=== PATIENT | female | born 1975 | race Caucasian/White ===

== ENCOUNTER 2025-07-17 13:19 | Outpatient (OUT) | payer OTHER, SELFPAY ==
--- OUTSIDE RECORDS SUMMARY | 2025-07-04 16:30 | XMS_ITS | Encounter Summary ---
Author Organization [facility] Address [address] [place] [address] Care Team Providers Care Pile Driving Setter Name Role Phone Unavailable Primary Care Provider Unavailabl e Reason for Visit * ReasonCommentsGynecologic Exam Encounter Details DateTypeDepartmentCare Team (Latest Contact Info)Kvsxgsxnkhl52/16/2025 4:30 PM EDTOffice Visit [facility] [address] [place] [address] Sara Jesus, SUZI [address] [place], [place] [id number] Normal gynecologic examination; Screening for cervical cancer; DUB (dysfunctional uterine bleeding); Endometrial thickening on ultrasound Social History Tobacco UseTypesPacks/DayYears UsedDateSmoking Tobacco: NeverSmokeless Tobacco: NeverAlcohol UseStandard Drinks/WeekCommentsNever0 (1 standard drink = 0.6 oz pure alcohol)Caffeine: noneCommentsNoSex and Gender InformationValueDate RecordedSex Assigned at SgtkhMsfauc30/18/2024 5:20 PM EDTLegal SexFemale 12/01/2022 7:24 PM EDTGender TmpsybmlKcpoem71/18/2024 5:20 PM EDTSexual OrientationNot on filedocumented as of this encounter Last Filed Vital Signs Vital SignReadingTime TakenCommentsBlood Kogmprnt349/9007/04/2025 4:35 PM EDT Pulse--Temperature--Respiratory Rate--Oxygen Saturation--Inhaled Oxygen Concentration--Jnmtfp349 kg (306 lb)07/04/2025 4:35 PM EDTHeight--Body Mass Index41.508/11/2022 9:41 AM EDTdocumented in this encounter Progress Notes * Sara Rochelle Jesus CNM - 07/04/2025 4:30 PM EDT YEARLY HPI: This is a established patient. Chief Complaint Patient presents with Gynecologic Exam Here for annual exam. OB History Para Term AB Living 4 1 4 SAB IAB Ectopic Multiple Live Births 1 # Outcome Date GA Lbr Luke/2nd Weight Sex Type Anes PTL Lv 4 7 lb 14 oz Vag-Spont 3 CS-LTranv Comments: baby girl A: 7lbs 12oz and baby B 7lbs 8oz 2 SAB 1 MANAGER CUSTOM complaints: dub Changes in healthsince last visit: no Surgeries or hospitalizations since last visit: no control method: none Menses: irregular Last pap: 2021 Other: History: Medical History[1] Surgical History[2] Family History[3] Allergies: Allergies[4] Medications: Medications Ordered Prior to Encounter[5] ROS: Review of Systems All other systems reviewed and are negative. Vitals: 07/04/25 1635 BP: 140/90 Physical exam: Physical Exam Vitals reviewed. Constitutional: Appearance: Normal appearance. HENT: Head: Normocephalic. Right Ear: Tympanic membrane normal. Left Ear: Tympanic membrane normal. Mouth/Throat: Mouth: Mucous membranes are moist. Eyes: Pupils: Pupils are equal, round, and reactive to light. Cardiovascular: Rate and Rhythm: Normal rate and regular rhythm. Pulses: Normal pulses. Heart sounds: Normal heart sounds. Pulmonary: Effort: Pulmonary effort is normal. Breath sounds: Normal breath sounds. Chest: Breasts: Right: Normal. Left: Normal. Abdominal: General: Abdomen is flat. Bowel sounds are normal. Palpations: Abdomen is soft. Tenderness: There is no abdominal tenderness. Genitourinary: General: Normal vulva. Exam position: Lithotomy position. Vagina: Normal. No tenderness. Cervix: Normal. No cervical motion tenderness. Uterus: Normal. Adnexa: Right adnexa normal and left adnexa normal. Musculoskeletal: General: Normal range of motion. Cervical back: Normal range of motion and neck supple. Skin: General: Skin is warm and dry. Neurological: General: No focal deficit present. Mental Status: She is alert and oriented to person, place, and time. Psychiatric: Mood and Affect: Mood normal. Assessment and Plan: 1. Annual exam 2. SBE discussed: Yes 3. Diet and exercise discussed: No 4. Wt control discussed: No 5. Safe sex discussed: No Asmita was seen today for gynecologic exam. Diagnoses and all orders for this visit: Normal gynecologic examination Screening for cervical cancer - THINPREP IMAGING PAP AND HPV DNA REFLEX HPV 16,18; Future - THINPREP IMAGING PAP AND HPV DNA REFLEX HPV 16,18 DUB (dysfunctional uterine bleeding) - Cancel: US Pelvis w/ TV; Future Endometrial thickening on ultrasound - US pelvis transvaginal; Future Patient states the irregular heavy bleeding stopped when she took the Megace. She had another period this month and states it wasn't as bad as the previous month but she wanted to keep this appt so she did take the magace.. I did go over the US results with her and educated her that she does need to have it repeated due to the endometrial stripe. It could be a proliferative stage of the cycle and we have to make sure and rule out any pathology. Patient states her maternal grandmother had ovarian cancer. She will get her repeat US done tomorrow since she recently stopped bleeding. No follow-ups on file. There are no Patient Instructions on file for this visit. Dior Dias MA, 07/04/2025 4:54 PM [1] No past medical history on file. [2] Past Surgical History: Procedure Laterality Date SECTION, LOW TRANSVERSE 2007 MAMMOGRAPHY 02/[address] Sethi [3] No family history on file. [4] Allergies Allergen Reactions Ibuprofen Rash [5] Current Outpatient Medications on File Prior to Visit Medication Sig Dispense Refill megestrol (Megace) 20 MG tablet Take 1 tablet BID x3 days and then daily while bleeding 30 tablet 1 No current facility-administered medications on file prior to visit. documented in this encounter Plan of Treatment Not on file documented as of this encounter Procedures Procedure NamePriorityDate/TimeAssociated DiagnosisCommentsTHINPREP IMAGING PAP AND HPV DNA REFLEX HPV 16,51Wxtdwmg79/17/2025 8:47 AM EDT Screening for cervical cancer documented in this encounter Results * US pelvis transvaginal (2025 1:57 PM EDT)Anatomical RegionLaterality ModalityPelvisUltrasoundSpecimen (Source)Anatomical Location / Laterality Collection Method / VolumeCollection TimeReceived Time07/08/2025 1:34 PM EDT Impressions 07/08/2025 2:15 PM EDT Persistent, abnormal endometrial thickening TRANSCRIBED BY: ? ELECTRONICALLY SIGNED BY: David Aranda MD Narrative 07/08/2025 2:15 PM EDT FINDINGS: Comparison prior exam June 03, 2025. Uterus ? 10.3 x 5.9 x 6.0 cm Endometrium ?See below (32 mm increased from 20) Right ovary ?Not seen Left ovary ?Not seen Normal uterine orientation with no focal intramural mass. Increased endometrial thickness, no cystic changes, 3 cm diameter, epicenter within the fundal region. No pelvic fluid. No adnexal mass. Procedure Note David Aranda MD - 07/08/2025 FINDINGS: Comparison prior exam June 03, 2025. Uterus 10.3 x 5.9 x 6.0 cm Endometrium See below (32 mm increased from 20) Right ovary Not seen Left ovary Not seen Normal uterine orientation with no focal intramural mass. Increased endometrial thickness, no cystic changes, 3 cm diameter,epicenter within the fundal region. No pelvic fluid. No adnexal mass. IMPRESSION: Persistent, abnormal endometrial thickening TRANSCRIBED BY: ELECTRONICALLY SIGNED BY: David Aranda MD Authorizing ProviderResult TypeResult StatusValeshivam Jesus [facility] US PROCEDURES Final Result * THINPREP IMAGING PAP AND HPV DNA REFLEX HPV 16,18 (2025 8:47 AM EDT) ComponentValueRef RangeTest MethodAnalysis TimePerformed AtPathologist SignatureCLINICAL INFORMATIONQUESTComment:None givenLMPQUESTComment:NONE GIVEN PREV. PAPQUESTComment:NONE GIVENPREV. BXQUESTComment:NONE GIVENSOURCEQUEST Comment:None givenSTATEMENT OF ADEQUACYQUESTComment: Satisfactory for evaluation. Endocervical/transformation zone component present. INTERPRETATION/RESULTQUESTComment: Cytology Results: Negative for intraepithelial lesion or malignancy. COMMENTQUESTComment: This Pap test has been evaluated with the ThinPrep(R) Imaging System. CYTOTECHNOLOGISTQUESTComment: DMK, CT(ASCP) CT screening location: [facility] [place] [address]. CLIA: [id number] REVIEW CYTOTECHNOLOGISTQUESTComment: JEZuleyma, CT(ASCP) CT Screening Location: [facility] [place] [address]. ??CLIA: [id number] (ALWAYS MESSAGE)QUESTComment: EXPLANATORY NOTE: The Pap is a screening test for cervical cancer. It is not a diagnostic test and is subject to false negative and false positive results. It is most reliable when a satisfactory sample, regularly obtained, is submitted with relevant clinical findings and history, and when the Pap result is evaluated along with historic and current clinical information. HPV DNA, HIGH RISK, CERVICALNot DetectedNOT DETECTEDQUESTComment: Not Detected High Risk HPV types (16,18,31,33,35,39,45,51,52, 56,58,59,66,68) were not detected. Other HPV types which cause anogenital lesions may be present. The significance of the other types of HPV in malignant processes has not been established. Methodology: Real Time PCR Specimen (Source)Anatomical Location / LateralityCollection Method / Volume Collection TimeReceived TimeSwabCervical swab / Gyxzpge6107/05/2025 8:47 AM EDT 07/06/2025 2:50 AM EDT Narrative Resulting Agency Comment Performing Organization Information ?Site ID: [facility] ?Name: [facility] ?Address: [address] [place] [address] [place], [place] ?Director: Angel Villegas M.D.,PhD ?Site ID: [id number] ?Name: [facility] ?Address: [address] [place] [address], [address] [place] [address] ?Director: Arcenio Nova MD Authorizing ProviderResult TypeResult StatusValeshivam Jesus CNMLAB CYTOLOGY ORDERABLESFinal ResultPerforming OrganizationAddressCity/State/ZIP CodePhone Number QUEST documented in this encounter Visit Diagnoses Diagnosis Normal gynecologic examination Screening for cervical cancer Screening for malignant neoplasm of the cervix DUB (dysfunctional uterine bleeding) Other disorder of menstruation and other abnormal bleeding from female genital tract Endometrial thickening on ultrasound Endometrial thickening on ultrasound documented in this encounter
--- OUTSIDE RECORDS SUMMARY | 2025-07-05 13:30 | XMS_ITS | Encounter Summary ---
Author Organization [facility] Address [address] [place] [address] Care Team Providers Care Culinary Internship Name Role Phone Unavailable Primary Care Provider Unavailabl e Encounter Details DateTypeDepartmentCare Team (Latest Contact Info)Zagmdblneim69/17/2025 1:30 PM EDTAncillary Procedure [facility] [address] [place] [address] Endometrial thickening on ultrasound Social History Tobacco UseTypesPacks/DayYears UsedDateSmoking Tobacco: NeverSmokeless Tobacco: NeverAlcohol UseStandard Drinks/WeekCommentsNever0 (1 standard drink = 0.6 oz pure alcohol)Caffeine: noneCommentsNoSex and Gender InformationValueDate RecordedSex Assigned at EurjeQzoaex74/18/2024 5:20 PM EDTLegal SexFemale 12/01/2022 7:24 PM EDTGender TimzmsrgAxnvto73/18/2024 5:20 PM EDTSexual OrientationNot on filedocumented as of this encounter Plan of Treatment Not on file documented as of this encounter Procedures Procedure NamePriorityDate/TimeAssociated DiagnosisCommentsUS PELVIS SIJRDJCNXKNMOkzplsm37/17/2025 1:57 PM EDT Endometrial thickening on ultrasound documented in this encounter Results * US [...] Aranda MD Authorizing ProviderResult TypeResult StatusValeshivam Jesus [facility] US PROCEDURES Final Result documented in this encounter Visit Diagnoses Diagnosis Endometrial thickening on ultrasound documented in this encounter
--- OUTSIDE RECORDS SUMMARY | 2025-07-15 15:00 | XMS_ITS | Encounter Summary ---
Author Organization [facility] Address [address] [place] [address] Care Team Providers Care Spring Repairer Helper Hand Name Role Phone Unavailable Primary Care Provider Unavailabl e Reason for Visit * ReasonCommentsConsult * OBGYN (Routine) - ClosedSpecialtyDiagnoses / ProceduresReferred By Contact Referred To ContactObstetrics and Gynecology Diagnoses DUB (dysfunctional uterine bleeding) Procedures HI OFFICE/OUTPATIENT [facility] 60 MINUTES Sara Jesus, CNJacki [address] [place] [address] Phone: tel: fax: Rivera Baker DO [address] [place] [address] Phone: tel: fax: Referral IDStatusReasonStart DateExpiration DateVisits RequestedVisits [id number] Specialty Services Required / Encounter Details DateTypeDepartmentCare Team (Latest Contact Info)Anrtzwnqfms67/27/2025 3:00 PM EDTConsult [facility] [address] [place] [address] Rivera Baker DO [address] [place] [address] Pre-op examination; DUB (dysfunctional uterine bleeding); Thickened endometrium Social History Tobacco UseTypesPacks/DayYears UsedDateSmoking Tobacco: NeverSmokeless Tobacco: Never Tobacco Cessation:Counseling Given: Not Answered Alcohol UseStandard Drinks/WeekCommentsNever0 (1 standard drink = 0.6 oz pure alcohol)Caffeine: noneCommentsNoSex and Gender InformationValueDate RecordedSex Assigned at FtjbrRsmooo65/18/2024 5:20 PM EDTLegal SexFemale 12/01/2022 7:24 PM EDTGender MpohjtbaDevcjc42/18/2024 5:20 PM EDTSexual OrientationNot on filedocumented as of this encounter Last Filed Vital Signs Vital SignReadingTime TakenCommentsBlood Wzkhfddb869/8210 3:08 PM EDT Pulse--Temperature--Respiratory Rate--Oxygen Saturation--Inhaled Oxygen Concentration--Dnkwuv958 kg (301 lb 12.8 oz)07/15/2025 3:08 PM TAZGbrzpu732.9 cm (6')07/15/2025 3:08 PM EDTBody Mass Index40.9307/15/2025 3:08 PM EDTdocumented in this encounter Progress Notes * Kat Alonso - 07/15/2025 3:00 PM EDT Reason for Appointment: Patient ID: Asmita Trotter is a 50 y.o. female who presents for Consult Patient presents today for Pre Op/Referral from [facility] appointment. Patient is scheduled to undergo D&C Hysteroscopy, possible Myosure on 07/22/[address] Baker at [facility]. MEDICATIONS Current Outpatient Medications Medication Instructions megestrol [...] nursing note reviewed. Exam conducted with a application assistant present. Vitals: Estimated body mass index is 40.93 kg/m?? as calculated from the following: Height as of this encounter: 6'. Weight as of this encounter: 301 lb 12.8 oz. BP: 142/82 Patient's last menstrual period was 07/01/2025 (approximate). ASSESSMENT & PLAN ICD-10-CM 1. Pre-op examination Z01.818 2. DUB (dysfunctional uterine bleeding) N93.8 3. Thickened endometrium R93.89 Patient presents today as a referral from [facility] to assess dysfunctional uterine bleeding. Patient has [...] reviewed, and patient is to proceed to [facility] OR. Follow Up: Patient is to follow [...]
--- OUTSIDE RECORDS SUMMARY | 2025-07-17 13:25 | XMS_ITS | Encounter Summary ---
Author Organization [facility] Address [address] [place] [address] [place] [address] Care Team Providers Care Highway Truck Driver Name Role Phone Unavailable Primary Care Provider Unavailabl e Encounter Details DateTypeDepartmentCare Team (Latest Contact Info)Mnasuakkbpv87/16/2025Bamboo flowsheet [facility] [address] [place] [address] Sara Jesus, SUZIM [address] [place], [place] [address] Social History Tobacco UseTypesPacks/DayYears UsedDateSmoking Tobacco: NeverSmokeless Tobacco: NeverAlcohol UseStandard Drinks/WeekCommentsNever0 (1 standard drink = 0.6 oz pure alcohol)Caffeine: noneCommentsNoSex and Gender InformationValueDate RecordedSex Assigned at BtsngAbiwuu10/18/2024 5:20 PM EDTLegal SexFemale 12/01/2022 7:24 PM EDTGender VtkngfvoDvbhlg28/18/2024 5:20 PM EDTSexual OrientationNot on filedocumented as of this encounter Plan of Treatment Not on file documented as of this encounter Visit Diagnoses Not on filedocumented in this encounter
--- OUTSIDE RECORDS SUMMARY | 2025-07-17 13:25 | XMS_ITS | Clinical Summary ---
Author Organization [facility] tem Address [id number] [address] [place] [address] Care Team Providers Care Shank Turner Name Role Phone Bruna Ashton MD Primary Care Provider + Family History Medical HistoryRelationNameCommentsBreast cancerMaternal AuntRelationNameStatus CommentsMaternal Aunt Social History Tobacco UseTypesPacks/DayYears UsedDateSmoking Tobacco: Never AssessedChildcare AnswerDate WvdyrtdnIoyzzxtkkYmpznze69/12/2019EmploymentAnswerDate Recorded HxzarywtgoNfpgthj72/12/2019Purpose - LifeAnswerDate RecordedPurpose and direction in gcpcJhotxqb75/11/2021CommentsUnknownSex and Gender InformationValueDate RecordedSex Assigned at BirthNot on fileLegal SexFemale 04/24/2015 11:58 AM EDTGender IdentityNot on fileSexual OrientationNot on file Plan of Treatment Not on file Medical Devices Not on file Insurance * Guarantor: EVELIN MONTENEGRO EAccount TypeRelation to PatientDate of BirthPhone Billing AddressPersonal/Kkuovl22 [address] [place] [id number] Care Teams Team MemberRelationshipSpecialtyStart DateEnd Date Bruna Ashton MD PCP - GeneralPediatrics3
--- OUTSIDE RECORDS SUMMARY | 2025-07-17 13:25 | XMS_ITS | Encounter Summary ---
Author Organization [facility] Address [address] [place] [address] Care Team Providers Care Dulite Machine Bluer Name Role Phone Unavailable Primary Care Provider Unavailabl e Reason for Referral * OBGYN (Routine) - ClosedSpecialtyDiagnoses / ProceduresReferred By Contact Referred To ContactObstetrics and Gynecology Diagnoses DUB (dysfunctional uterine bleeding) Procedures [place] OFFICE/OUTPATIENT [facility] 60 MINUTES Sara Jesus CNM [address] [place] [address] Phone: tel: fax: Rivera Baker [address] [place] [address] Phone: tel: fax: Referral IDStatusReasonStart DateExpiration DateVisits RequestedVisits [id number] Specialty Services Required / Encounter Details DateTypeDepartmentCare Team (Latest Contact Info)Nmkmfimyygs30/20/2025Orders Only [facility] [address] [place] [address] Sara Jesus CNM [address] [place], [place] [id number] DUB (dysfunctional uterine bleeding) (Primary Dx) Social History Tobacco UseTypesPacks/DayYears UsedDateSmoking Tobacco: NeverSmokeless Tobacco: NeverAlcohol UseStandard Drinks/WeekCommentsNever0 (1 standard drink = 0.6 oz pure alcohol)Caffeine: noneCommentsNoSex and Gender InformationValueDate RecordedSex Assigned at DphapJwxfjy95/18/2024 5:20 PM EDTLegal SexFemale 12/01/2022 7:24 PM EDTGender IbudogqhLnnzwk02/18/2024 5:20 PM EDTSexual OrientationNot on filedocumented as of this encounter Plan of Treatment NameTypePriorityAssociated DiagnosesOrder ScheduleAmbulatory referral to Obstetrics / GynecologyOutpatient ReferralRoutine DUB (dysfunctional uterine bleeding) Expected: 07/08/2025 (Approximate), Expires: 01/06/2026documented as of this encounter Visit Diagnoses Diagnosis DUB (dysfunctional uterine bleeding)- Primary Other disorder of menstruation and other abnormal bleeding from female genital tract documented in this encounter
--- OUTSIDE RECORDS SUMMARY | 2025-07-17 13:25 | XMS_ITS | Encounter Summary ---
Author Organization [facility] Address [address] [place] [address] Care Team Providers Care Sas Analyst Name Role Phone Unavailable Primary Care Provider Unavailabl e Encounter Details DateTypeDepartmentCare Team (Latest Contact Info)Pzqwszjsmug56/15/2025Travel Social History Tobacco UseTypesPacks/DayYears UsedDateSmoking Tobacco: NeverSmokeless Tobacco: NeverAlcohol UseStandard Drinks/WeekCommentsNever0 (1 standard drink = 0.6 oz pure alcohol)Caffeine: noneCommentsNoSex and Gender InformationValueDate RecordedSex Assigned at ByhkyNdisaj31/18/2024 5:20 PM EDTLegal SexFemale 12/01/2022 7:24 PM EDTGender VwtyayisWlatki43/18/2024 5:20 PM EDTSexual OrientationNot on filedocumented as of this encounter Plan of Treatment Not on file documented as of this encounter Visit Diagnoses Not on filedocumented in this encounter
--- OUTSIDE RECORDS SUMMARY | 2025-07-17 13:25 | XMS_ITS | Encounter Summary ---
Author Organization [facility] Address [address] [place] [address] Care Team Providers Care Starcher And Tenter Range Feeder Name Role Phone Unavailable Primary Care Provider Unavailabl e Encounter Details DateTypeDepartmentCare Team (Latest Contact Info)Ysyffzztnig62/17/2025Travel Social History Tobacco UseTypesPacks/DayYears UsedDateSmoking Tobacco: NeverSmokeless Tobacco: NeverAlcohol UseStandard Drinks/WeekCommentsNever0 (1 standard drink = 0.6 oz pure alcohol)Caffeine: noneCommentsNoSex and Gender InformationValueDate RecordedSex Assigned at XkjjlOklvwj50/18/2024 5:20 PM EDTLegal SexFemale 12/01/2022 7:24 PM EDTGender VtqpjbbcVzgepl06/18/2024 5:20 PM EDTSexual OrientationNot on filedocumented as of this encounter Plan of Treatment Not on file documented as of this encounter Visit Diagnoses Not on filedocumented in this encounter
--- OUTSIDE RECORDS SUMMARY | 2025-07-17 13:26 | XMS_ITS | Encounter Summary ---
Author Organization [facility] Address [address] [place] [address] Care Team Providers Care Seat Nailer Name Role Phone Unavailable Primary Care Provider Unavailabl e Encounter Details DateTypeDepartmentCare Team (Latest Contact Info)Bzrwooziecq66/27/2025amboo flowsheet [facility] [address] [place] [address] Rivera Baker DO [address] [place] [address] Social History Tobacco UseTypesPacks/DayYears UsedDateSmoking Tobacco: NeverSmokeless Tobacco: NeverAlcohol UseStandard Drinks/WeekCommentsNever0 (1 standard drink = 0.6 oz pure alcohol)Caffeine: noneCommentsNoSex and Gender InformationValueDate RecordedSex Assigned at CnkbsEzzvvu81/18/2024 5:20 PM EDTLegal SexFemale 12/01/2022 7:24 PM EDTGender LipzxcmkEjluyd40/18/2024 5:20 PM EDTSexual OrientationNot on filedocumented as of this encounter Plan of Treatment Not on file documented as of this encounter Visit Diagnoses Not on filedocumented in this encounter
--- OUTSIDE RECORDS SUMMARY | 2025-07-17 13:26 | XMS_ITS | Encounter Summary ---
Author Organization [facility] Address [address] [place] [address] Care Team Providers Care Women Nurse Name Role Phone Unavailable Primary Care Provider Unavailabl e Encounter Details DateTypeDepartmentCare Team (Latest Contact Info)Oaavdrcjlls63/25/2025Travel Social History Tobacco UseTypesPacks/DayYears UsedDateSmoking Tobacco: NeverSmokeless Tobacco: NeverAlcohol UseStandard Drinks/WeekCommentsNever0 (1 standard drink = 0.6 oz pure alcohol)Caffeine: noneCommentsNoSex and Gender InformationValueDate RecordedSex Assigned at JngdeZcodqc14/18/2024 5:20 PM EDTLegal SexFemale 12/01/2022 7:24 PM EDTGender LhwndqfoFhwysd03/18/2024 5:20 PM EDTSexual OrientationNot on filedocumented as of this encounter Plan of Treatment Not on file documented as of this encounter Visit Diagnoses Not on filedocumented in this encounter
--- OUTSIDE RECORDS SUMMARY | 2025-07-17 13:26 | XMS_ITS | Encounter Summary ---
Author Organization [facility] Address [address] [place] [address] Care Team Providers Care Exhibition Carver Name Role Phone Unavailable Primary Care Provider Unavailabl e Encounter Details DateTypeDepartmentCare Team (Latest Contact Info)Kipagcxjhil06/20/2025Results Follow-Up [facility] [address] [place] [address] Dior Hightower MA pelvis transvaginal, THINPREP IMAGING PAP AND HPV DNA REFLEX HPV 16,18 Social History Tobacco UseTypesPacks/DayYears UsedDateSmoking Tobacco: NeverSmokeless Tobacco: NeverAlcohol UseStandard Drinks/WeekCommentsNever0 (1 standard drink = 0.6 oz pure alcohol)Caffeine: noneCommentsNoSex and Gender InformationValueDate RecordedSex Assigned at HutseEvggkl48/18/2024 5:20 PM EDTLegal SexFemale 12/01/2022 7:24 PM EDTGender WaynugynTuxmuc92/18/2024 5:20 PM EDTSexual OrientationNot on filedocumented as of this encounter Plan of Treatment Not on file documented as of this encounter Visit Diagnoses Not on filedocumented in this encounter
--- OUTSIDE RECORDS SUMMARY | 2025-07-17 13:26 | XMS_ITS | Clinical Summary ---
Author Organization [facility] Address [address] [place] [address] Care Team Providers Care Bread Packer Name Role Phone Unavailable Primary Care Provider Unavailabl e Allergies Active AllergyReactionsCriticalityNoted XmlfJyzselnbRhznezjeyLimvNiw64/03/2023 Medications MedicationSigDispense QuantityRefillsLast FilledStart DateEnd DateStatus megestrol (Megace) 20 MG tablet Indications:DUB (dysfunctional uterine bleeding)Take 1 tablet BID x3 days and then daily while bleeding 30 tablet 5Active Encounters DateTypeDepartmentCare ZyhzWmfwsyneaid08/27/2025 3:00 PM EDTConsult [facility] [address] [place] [address] [place] [address] Rivera Baker DO Pre-op examination; DUB (dysfunctional uterine bleeding); Thickened dfkkwfexdet61/27/2025amboo flowsheet [facility] [address] [place] [address] [place] [address] Rivera Baker DO 07/13/20257351Gcibdp66/20/2025Results Follow-Up [facility] [address] [place] [address] Dior Hightower MA US pelvis transvaginal, THINPREP IMAGING PAP AND HPV DNA REFLEX HPV 16,18 07/08/2025Orders Only [facility] [address] [place] [address] Saar Jesus CNM DUB (dysfunctional uterine bleeding) (Primary Dx)2025 1:30 PM EDTAncillary Procedure [facility] [address] [address] Endometrial thickening on /17/3389Jzglfd52/16/2025 4:30 PM EDTOffice Visit [facility] [address] [place] [address] Sara Jesus CNM Normal gynecologic examination; Screening for cervical cancer; DUB (dysfunctional uterine bleeding); Endometrial thickening on dyaciittvn65/16/2025amboo flowsheet [facility] [address] [facility] [place] [address] Sara Jesus CNM 07/03/20253848Unkinm10/26/2025Results Follow-Up [facility] [address] [place] [phone] Dior Hightower MA CBC, TSH, Comprehensive metabolic panel, Additional followed-up results: 2 06/03/2025 5:00 PM EDTAncillary Procedure [facility] [address] [address] DUB (dysfunctional uterine bleeding)06/03/20259128Xkkmag84/12/2074Ugbjzq36/11/2025 1:30 PM EDTOffice Visit [facility] [address] [place] [address] Sara Jesus CNM DUB (dysfunctional uterine bleeding) (Primary Dx)05/30/2025amboo flowsheet [facility] [address] [place] [address] Sara Jesus CNM 05/30/20259887Unwwsp01/12/2025Results Follow-Up [facility] [address] [place] [phone] Sara Jesus CNM Bilateral screening mammogram with npyxupuusvjrt57/08/2025 1:00 PM EDTAncillary Procedure [facility] [address] [place] [address] Breast cancer screening by xmglqnkix17/08/2025Travelfrom Last 3 Months Family History RelationNameStatusCommentsDaughter 1AliveDaughter 2Alive Social History Tobacco UseTypesPacks/DayYears UsedDateSmoking Tobacco: NeverSmokeless Tobacco: Never Tobacco Cessation:Counseling Given: Not Answered Alcohol UseStandard Drinks/WeekCommentsNever0 (1 standard drink = 0.6 oz pure alcohol)Caffeine: noneCommentsNoSex and Gender InformationValueDate RecordedSex Assigned at OahrnCvtzuo53/18/2024 5:20 PM EDTLegal SexFemale 12/01/2022 7:24 PM EDTGender TbvbvpcdFypekb95/18/2024 5:20 PM EDTSexual OrientationNot on file Last Filed Vital Signs Vital SignReadingTime TakenCommentsBlood Pywjmvcj384/8207/15/2025 3:08 PM EDT Pulse--Temperature--Respiratory Rate--Oxygen Saturation--Inhaled Oxygen Concentration--Xzybdo267 kg (301 lb 12.8 oz)07/15/2025 3:08 PM XRKUsmzyz117.9 cm (6')07/15/2025 3:08 PM EDTBody Mass Index40.9307/15/2025 3:08 PM EDT Plan of Treatment Not on file Procedures Procedure NamePriorityDate/TimeAssociated DiagnosisCommentsUS PELVIS WYQWOKVRAUJVVqutoqc01/17/2025 1:57 PM EDT Endometrial thickening on ultrasound THINPREP IMAGING PAP AND HPV DNA REFLEX HPV 16,16Wknppix76/17/2025 8:47 AM EDT Screening for cervical cancer US PELVIC COMPLETE W/ JTBkhvwgx06/15/2025 5:42 PM EDT DUB (dysfunctional uterine bleeding) LIPID GQDGANlneejb35/11/2025 2:08 PM EDT DUB (dysfunctional uterine bleeding) COMPREHENSIVE METABOLIC PPAEULyepeyk97/11/2025 2:08 PM EDT DUB (dysfunctional uterine bleeding) DXEPwosthj08/11/2025 2:08 PM EDT DUB (dysfunctional uterine bleeding) ZJKSphmegu16/11/2025 2:08 PM EDT DUB (dysfunctional uterine bleeding) BI MAMMOGRAM SCREENING TOMOSYNTHESIS HXNAKQIOZKgukkhy27/08/2025 1:11 PM EDT Breast cancer screening by mammogram from Last 3 Months Results * US pelvis transvaginal (2025 1:57 [...] Aranda MD Authorizing ProviderResult TypeResult StatusValeshivam Jesus [facility] US PROCEDURES Final Result * THINPREP [...] evaluated with the ThinPrep(R) Imaging System. CYTOTECHNOLOGISTQUESTComment: ELYSE CT(ASCP) CT screening location: [facility] [place] [address]. CLIA: [id number] REVIEW CYTOTECHNOLOGISTQUESTComment: TEODORA CT(ASCP) CT Screening Location: [facility] [place] [address]. ??CLIA: [id number] (ALWAYS MESSAGE)QUESTComment: EXPLANATORY NOTE: The Pap is [...] / Volume Collection TimeReceived TimeSwabCervical swab / Hfqyksh5207/05/2025 8:47 AM EDT 07/06/2025 2:50 AM EDT Narrative Resulting Agency Comment Performing Organization Information ?Site ID: AMD ?Name: [facility] ?Address: [address] [place] [address] [address] [place], [place] ?Director: Angel Villegas M.D.,PhD ?Site ID: [id number] ?Name: [facility] [employer] [facility] [facility] ?Address: [address] [place] [address], [address] [place] [phone] ?Director: Arcenio Nova MD Authorizing ProviderResult TypeResult StatusValerijeo Jesus CNMLAB CYTOLOGY ORDERABLESFinal ResultPerforming OrganizationAddressCity/[facility] CodePhone Number [facility]ST * US Pelvis w/ TV (06/03/2025 5:42 PM EDT)Anatomical RegionLateralityModality PelvisUltrasoundSpecimen (Source)Anatomical Location / LateralityCollection Method / VolumeCollection TimeReceived Time06/04/2025 1:21 PM EDT Impressions 06/04/2025 1:31 PM EDT 1. Endometrial thickness, correlate with menstrual cycle history and if tissue sampling is not undertaken, at minimum follow-up examinations 2. Left ovarian benign cyst TRANSCRIBED BY: ? ELECTRONICALLY SIGNED BY: David Aranda MD Narrative 06/04/2025 1:31 PM EDT FINDINGS: Uterus ? 13.5 x 8.1 x 6.0 cm Endometrium ? See below Right ovary ?2.4 x 1.8 x 1.6 cm Left ovary ?4.1 x 4.3 x 4.2 cm (cyst) Normal uterine orientation. No myometrial mass. Endometrial thickening, no focal mass or cystic changes, 20 mm thickness within the fundus. No pelvic fluid. Left ovarian 3 cm benign cyst. Normal right ovary, visualized only on transabdominal images. Procedure Note David Aranda MD - 06/04/2025 FINDINGS: Uterus 13.5 x 8.1 x 6.0 cm Endometrium See below Right ovary 2.4 x 1.8 x 1.6 cm Left ovary 4.1 x 4.3 x 4.2 cm (cyst) Normal uterine orientation. No myometrial mass. Endometrial thickening, no focal mass or cystic changes, 20 mm thicknesswithin the fundus. No pelvic fluid. Left ovarian 3 cm benign cyst. Normal right ovary,visualized only on transabdominal images. IMPRESSION: 1. Endometrial thickness, correlate with menstrual cycle history and iftissue sampling is not undertaken, at minimum follow-up examinations 2. Left ovarian benign cyst TRANSCRIBED BY: ELECTRONICALLY SIGNED BY: David Aranda MD Authorizing ProviderResult TypeResult StatusValerijoe Jesus [facility] US PROCEDURES Final Result * (ABNORMAL) CBC (05/30/2025 2:08 PM EDT)ComponentValueRef RangeTest Method Analysis TimePerformed AtPathologist SignatureWHITE BLOOD CELL COUNT7.03.8 - 10.8 Thousand/uLQUESTRED BLOOD CELL COUNT4.373.80 - 5.10 Million/uLQUEST LZWHJFSRFA07.9(L)11.7 - 15.5 g/mVHLLBFMVUHTVEQTQ77.835.0 - 45.0 %TBORHNOJ83.2 80.0 - 100.0 yZRUHJVSQE45.9(L)27.0 - 33.0 vyAGBMIPKKD95.6(L)32.0 - 36.0 g/dL QUESTComment: For adults, a slight decrease in the calculated MCHC value (in the range of 30 to 32 g/dL) is most likely not clinically significant; however, it should be interpreted with caution in correlation with other red cell parameters and the patient's clinical condition. RDW14.211.0 - 15.0 %QUESTPLATELET TIBMM193(H)140 - 400 Thousand/uRGGYPYXUK20.4 7.5 - 12.5 fLQUESTSpecimen (Source)Anatomical Location / LateralityCollection Method / VolumeCollection TimeReceived TimeBloodVenous blood specimen / Unknown 05/30/2025 2:08 PM EDT05/30/2025 2:09 PM EDT Narrative Resulting Agency Comment Performing Organization Information ?Site ID: [id number] ?Name: [facility] [facility] ?Address: [address] [place] [address] ?Director: Arcenio Nova MD Authorizing ProviderResult TypeResult StatusValerijoe Burroughso CNMLAB BLOOD ORDERABLESFinal ResultPerforming OrganizationAddressty/State/ZIP CodePhone Number [facility]ST * TSH (05/30/2025 2:08 PM EDT)ComponentValueRef RangeTest MethodAnalysis Time Performed AtPathologist SignatureTSH1.36mIU/LQUESTComment: ?Reference Range ? > or = 20 Years 0.40-4.50 ? Ranges ?First trimester ?0.26-2.66 ?Second trimester ?? 0.55-2.73 ?Third trimester ?0.43-2.91 Specimen (Source)Anatomical Location / LateralityCollection Method / Volume Collection TimeReceived TimeBloodVenous blood specimen / Lvmvond7905/30/2025 2:08 PM EDT05/30/2025 2:09 PM EDT Narrative Resulting Agency Comment Performing Organization Information ?Site ID: [id number] ?Name: [facility] [facility] ?Address: [address] [place] [address] ?Director: Arcenio Nova MD Authorizing ProviderResult TypeResult StatusValerijoe Burroughso CNMLAB BLOOD ORDERABLESFinal ResultPerforming OrganizationAddLehigh [facility]/ZIP CodePhone Number QUEST * Lipid panel (05/30/2025 2:08 PM EDT)ComponentValueRef RangeTest MethodAnalysis TimePerformed AtPathologist SignatureCHOLESTEROL, IRIJC725<200 mg/dLQUESTHDL TVQBEUYGJHA98> OR = 50 mg/kLSEYURVBJQWCNFBFWZW10<150 mg/dLQUESTLDL CHOLESTEROL 98mg/dL (calc)QUESTComment: Reference range: <100 Desirable range <100 mg/dL for primary prevention; <70 mg/dL for patients with CHD or diabetic patients with > or = 2 CHD risk factors. LDL-C is now calculated using the Vida calculation, which is a validated novel method providing better accuracy than the Friedewald equation in the estimation of LDL-C. Aaron RODRIGUEZ et al. STACY. 2013;310(19): 7010-9411 (http://education.ReDigi.[employer]/faq/TKX205) CHOL/HDLC RATIO3.1<5.0 (calc)QUESTNON HDL OGCUJUCDEBL047<130 mg/dL (calc)QUEST Comment: For patients with diabetes plus 1 major ASCVD risk factor, treating to a non-HDL-C goal of <100 mg/dL (LDL-C of <70 mg/dL) is considered a therapeutic option. Specimen (Source)Anatomical Location / LateralityCollection Method / Volume Collection TimeReceived TimeBloodVenous blood specimen / Uwxvzpw8605/30/2025 2:08 PM EDT05/30/2025 2:09 PM EDT Narrative Resulting Agency Comment Performing Organization Information ?Site ID: QPT ?Name: [facility] [employer] [facility] [facility] ?Address: [address] [place] [address], [address] [place] [phone] ?Director: Arcenio Nova MD Authorizing ProviderResult TypeResult StatusValerijoe Jesus CNMLAB BLOOD ORDERABLESFinal ResultPerforming OrganizationAddressCity/State/ZIP CodePhone Number [facility]ST * (ABNORMAL) Comprehensive metabolic panel (05/30/2025 2:08 PM EDT)Component ValueRef RangeTest MethodAnalysis TimePerformed AtPathologist SignatureGlucose 125(H)65 - 99 mg/dLQUESTComment: ? Fasting reference interval For someone without known diabetes, a glucose value between 100 and 125 mg/dL is consistent with prediabetes and should be confirmed with a follow-up test. IIF674 - 25 mg/dLQUESTCreatinine0.940.50 - 0.99 mg/gONHKFKMXTG44> OR = 60 mL/min/1.74t4HTRMVHVR/CREATININE RATIOSEE NOTE:6 - 22 (calc)QUESTComment: ?? Not Reported: BUN and Creatinine are within ?? reference range. ? Pfaffq352992 - 146 mmol/LQUESTPotassium, Bld4.13.5 - 5.3 mmol/WVDHZCZbtzmiap532 98 - 110 mmol/LQUESTCarbon Vwqcjdz2999 - 32 mmol/LQUESTCalcium9.08.6 - 10.2 mg/dLQUESTPROTEIN, TOTAL7.36.1 - 8.1 g/dLQUESTALBUMIN4.33.6 - 5.1 g/dLQUEST GLOBULIN3.01.9 - 3.7 g/dL (calc)QUESTALBUMIN/GLOBULIN RATIO1.41.0 - 2.5 (calc) QUESTBILIRUBIN, TOTAL0.40.2 - 1.2 mg/dLQUESTALKALINE BZXKLOXEHXE4899 - 125 U/L VPYVKJWV2130 - 35 U/GDNEMBPHB72 - 29 U/LQUESTSpecimen (Source)Anatomical Location / LateralityCollection Method / VolumeCollection TimeReceived TimeBlood Venous blood specimen / Iwrcxpf8705/30/2025 2:08 PM EDT05/30/2025 2:09 PM EDT Narrative Resulting Agency Comment Performing Organization Information ?Site ID: QPT ?Name: [facility] [facility] ?Address: [address] [place] [phone] ?Director: Arcenio Nova MD Authorizing ProviderResult TypeResult StatusValerijoe Jesus CNMLAB BLOOD ORDERABLESFinal ResultPerforming OrganizationAddressCity/State/ZIP CodePhone Number QUEST * Bilateral screening mammogram with tomosynthesis (04/26/2025 1:11 PM EDT) Anatomical RegionLateralityModalityBreastBilateralMammographySpecimen (Source) Anatomical Location / LateralityCollection Method / VolumeCollection Time Received Time04/28/2025 2:12 PM EDT Impressions 04/28/2025 2:20 PM EDT Impression: No specific evidence of malignancy seen in either breast. BIRADS 2 - Benign Findings DENSITY: The breasts are almost entirely fatty. FOLLOW-UP: Routine Screening Mammogram ELECTRONICALLY SIGNED BY: Salazar Bergman M.D. Narrative 04/28/2025 2:20 PM EDT Examination: BI MAMMOGRAM SCREENING TOMOSYNTHESIS BILATERAL Clinical History: screening Technique: Screening digital mammography study of both breasts was performed with 2-D and 3-D tomosynthesis imaging. Study was compared to the prior exam dated 04/23/2024. Findings: There is no evidence of interval dominant spiculated mass, grouped microcalcifications, or skin thickening which would be suggestive of malignancy. ?? Partially visualized axillary lymph node is noted on the left which appears grossly unremarkable. Procedure Note Salazar Bergman MD - 04/28/2025 Examination: BI MAMMOGRAM SCREENING TOMOSYNTHESIS BILATERAL Clinical History: screening Technique: Screening digital mammography study of both breasts wasperformed with 2-D and 3-D tomosynthesis imaging. Study was compared tothe prior exam dated 04/23/2024. Findings: There is no evidence of interval dominant spiculated mass,grouped microcalcifications, or skin thickening which would be suggestiveof malignancy. Partially visualized axillary lymph node is noted on the left whichappears grossly unremarkable. IMPRESSION: Impression: No specific evidence of malignancy seen in either breast. BIRADS 2 - Benign Findings DENSITY: The breasts are almost entirely fatty. FOLLOW-UP: Routine Screening Mammogram ELECTRONICALLY SIGNED BY: Salazar Bergman M.D. Authorizing ProviderResult TypeResult StatusValerie Rochelle Jesus CNMIMG BI PROCEDURES Final Result from Last 3 Months Insurance
--- NOTE | 2025-07-17 13:30 | ECG_ITS ---
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
== END 2025-07-17 13:20 | disposition home or self-care (01) ==
PROVIDERS: Visit Provider Obstetrics & Gynecology
DX: Z01.810 Encounter for preprocedural cardiovascular examination (principal); N93.8 Other specified abnormal uterine and vaginal bleeding; R93.89 Abnormal findings on diagnostic imaging of other specified body structures
CPT/HCPCS: 93005

== ENCOUNTER 2025-07-22 06:14 | Day surgery (SDC) | payer OTHER, SELFPAY ==
--- OUTSIDE RECORDS SUMMARY | 2025-07-15 14:00 | XMS_ITS | Encounter Summary ---
Author Organization [facility] Address [address] [place] [address] Care Team Providers Care Manager Pool Name Role Phone Unavailable Primary Care Provider Unavailabl e Reason for Visit * ReasonCommentsConsult * OBGYN (Routine) - ClosedSpecialtyDiagnoses / ProceduresReferred By Contact Referred To ContactObstetrics and Gynecology Diagnoses DUB (dysfunctional uterine bleeding) Procedures ID OFFICE/OUTPATIENT [facility] 60 MINUTES Sara Jesus, CNJacki [address] [place] [address] Phone: tel: fax: Rivera Baker DO [address] [place] [address] Phone: tel: fax: Referral IDStatusReasonStart DateExpiration DateVisits RequestedVisits [id number] Specialty Services Required / Encounter Details DateTypeDepartmentCare Team (Latest Contact Info)Xzkvvsbntuu89/27/2025 3:00 PM EDTConsult [facility] [address] [place] [address] Rivera Baker DO [address] [place] [address] Pre-op examination; DUB (dysfunctional uterine bleeding); Thickened endometrium Social History Tobacco UseTypesPacks/DayYears UsedDateSmoking Tobacco: NeverSmokeless Tobacco: Never Tobacco Cessation:Counseling Given: Not Answered Alcohol UseStandard Drinks/WeekCommentsNever0 (1 standard drink = 0.6 oz pure alcohol)Caffeine: noneCommentsNoSex and Gender InformationValueDate RecordedSex Assigned at VvnyjLhnihp14/18/2024 5:20 PM EDTLegal SexFemale 12/01/2022 7:24 PM EDTGender IymoducuBortva69/18/2024 5:20 PM EDTSexual OrientationNot on filedocumented as of this encounter Last Filed Vital Signs Vital SignReadingTime TakenCommentsBlood Bmenvtak904/8210 3:08 PM EDT Pulse--Temperature--Respiratory Rate--Oxygen Saturation--Inhaled Oxygen Concentration--Adwpvm675 kg (301 lb 12.8 oz)07/15/2025 3:08 PM AMSDwhmmc652.9 cm (6')07/15/2025 3:08 PM EDTBody Mass Index40.9307/15/2025 3:08 PM EDTdocumented in this encounter Progress Notes * Kat Alonso - 07/15/2025 3:00 PM EDT Reason for Appointment: Patient ID: Asmita Trotter is a 50 y.o. female who presents for Consult Patient presents today for Pre Op/Referral from [facility] appointment. Patient is scheduled to undergo D&C Hysteroscopy, possible Myosure on 07/22/[address] [facility]. MEDICATIONS Current Outpatient Medications Medication Instructions megestrol (Megace) 20 MG tablet Take 1 tablet BID x3 days and then daily while bleeding ALLERGIES Allergies Allergen Reactions Ibuprofen Rash PROBLEMS Active Ambulatory Problems Diagnosis Date Noted No Active Ambulatory Problems Resolved Ambulatory Problems Diagnosis Date Noted No Resolved Ambulatory Problems No Additional Past Medical History HISTORY PAST MEDICAL HISTORY SOCIAL HISTORY No past medical history on file. Social History Tobacco Use Smoking status: Never Smokeless tobacco: Never Vaping Use Vaping status: Never Used Substance Use Topics Alcohol use: Never Comment: Caffeine: none Drug use: Never FAMILY HISTORY No family history on file. SURGICAL HISTORY Past Surgical History: Procedure Laterality Date SECTION, LOW TRANSVERSE 2007 MAMMOGRAPHY 02/[address] Sethi REVIEW OF SYSTEMS Review of Systems: Review of Systems Constitutional: Negative. HENT: Negative. Eyes: Negative. Respiratory: Negative. Cardiovascular: Negative. Gastrointestinal: Negative. Genitourinary: Positive for vaginal bleeding. Musculoskeletal: Negative. Skin: Negative. Neurological: Negative. All other systems reviewed and are negative. Hematological: Negative. Endocrine: Negative. Allergic/Immunologic: Negative. OBJECTIVE Objective: Physical Exam Constitutional: Appearance: Normal appearance. She is well-developed. Cardiovascular: Rate and Rhythm: Normal rate and regular rhythm. Pulmonary: Effort: Pulmonary effort is normal. Breath sounds: Normal breath sounds. Abdominal: General: Bowel sounds are normal. There is no distension. Palpations: Abdomen is soft. Tenderness: There is no abdominal tenderness. There is no guarding or rebound. Musculoskeletal: General: No swelling. Normal range of motion. Right lower leg: No edema. Left lower leg: No edema. Neurological: Mental Status: She is alert and oriented to person, place, and time. Skin: General: Skin is warm and dry. Psychiatric: Mood and Affect: Mood normal. Behavior: Behavior normal. Vitals and nursing note reviewed. Exam conducted with a operations and maintenance technician present. Vitals: Estimated body mass index is 40.93 kg/m?? as calculated from the following: Height as of this encounter: 6'. Weight as of this encounter: 301 lb 12.8 oz. BP: 142/82 Patient's last menstrual period was 07/01/2025 (approximate). ASSESSMENT & PLAN ICD-10-CM 1. Pre-op examination Z01.818 2. DUB (dysfunctional uterine bleeding) N93.8 3. Thickened endometrium R93.89 Patient presents today as a referral from [facility] to assess dysfunctional uterine bleeding. Patient has had irregular heavy bleeding and and has tried Megace in the past. Due to ultrasound results discovering a thickened endometrium, patient needs to undergo a D&C Hysteroscopy. Pre Op: Patient is doing well but has complaints of DUB and thickened endometrium found on ultrasound. I have discussed conservative management vs. surgical management with the patient in detail and patient desires surgical management at this time. Patient will undergo D&C Hysteroscopy, possible Myosure on 07/22/2025. Surgical consents were signed, mmc was reviewed, and patient is to proceed to [facility] OR. Follow Up: Patient is to follow up between 1-2 weeks post operative to assess proper healing and recovery fromprocedure. Documented by Lucille Panchal LPN on behalf of: Rivera Baker DO documented in this encounter Plan of Treatment Not on file documented as of this encounter Visit Diagnoses Diagnosis Pre-op examination DUB (dysfunctional uterine bleeding) Other disorder of menstruation and other abnormal bleeding from female genital tract Thickened endometrium Nonspecific (abnormal) findings on radiological and other examination of genitourinary organs documented in this encounter
[2025-07-17 13:52] VITALS: BP 134/93; PULSE 75; TEMP 36.5; O2SAT 96; BMI 40.9
--- OUTSIDE RECORDS SUMMARY | 2025-07-22 06:19 | XMS_ITS | Encounter Summary ---
Author Organization [facility] Address [address] [place] [address] Care Team Providers Care Material Hauler Name Role Phone Unavailable Primary Care Provider Unavailabl e Encounter Details DateTypeDepartmentCare Team (Latest Contact Info)Mmgnwyyfjme75/25/2025Travel Social History Tobacco UseTypesPacks/DayYears UsedDateSmoking Tobacco: NeverSmokeless Tobacco: NeverAlcohol UseStandard Drinks/WeekCommentsNever0 (1 standard drink = 0.6 oz pure alcohol)Caffeine: noneCommentsNoSex and Gender InformationValueDate RecordedSex Assigned at TmvbtNiiyig14/18/2024 5:20 PM EDTLegal SexFemale 12/01/2022 7:24 PM EDTGender OrnkqvguBtpezb66/18/2024 5:20 PM EDTSexual OrientationNot on filedocumented as of this encounter Plan of Treatment Not on file documented as of this encounter Visit Diagnoses Not on filedocumented in this encounter
--- OUTSIDE RECORDS SUMMARY | 2025-07-22 06:19 | XMS_ITS | Encounter Summary ---
Author Organization [facility] Address [address] [place] [address] Care Team Providers Care Icer Machine Name Role Phone Unavailable Primary Care Provider Unavailabl e Encounter Details DateTypeDepartmentCare Team (Latest Contact Info)Yvqtwqrndbq19/27/2025amboo flowsheet [facility] [address] [place] [address] Rivera Baker DO [address] [place] [address] Social History Tobacco UseTypesPacks/DayYears UsedDateSmoking Tobacco: NeverSmokeless Tobacco: NeverAlcohol UseStandard Drinks/WeekCommentsNever0 (1 standard drink = 0.6 oz pure alcohol)Caffeine: noneCommentsNoSex and Gender InformationValueDate RecordedSex Assigned at WsvvwKsaruu10/18/2024 5:20 PM EDTLegal SexFemale 12/01/2022 7:24 PM EDTGender TuuueblwBinubz42/18/2024 5:20 PM EDTSexual OrientationNot on filedocumented as of this encounter Plan of Treatment Not on file documented as of this encounter Visit Diagnoses Not on filedocumented in this encounter
--- OUTSIDE RECORDS SUMMARY | 2025-07-22 06:19 | XMS_ITS | Encounter Summary ---
Author Organization [facility] Address [address] [place] [address] Care Team Providers Care Telephoner Name Role Phone Unavailable Primary Care Provider Unavailabl e Reason for Referral * OBGYN (Routine) - ClosedSpecialtyDiagnoses / ProceduresReferred By Contact Referred To ContactObstetrics and Gynecology Diagnoses DUB (dysfunctional uterine bleeding) Procedures [place] OFFICE/OUTPATIENT [facility] 60 MINUTES Sara Jesus CNM [address] [place] [address] Phone: tel: fax: Rivera Baker [address] [place] [address] Phone: tel: fax: Referral IDStatusReasonStart DateExpiration DateVisits RequestedVisits [id number] Specialty Services Required / Encounter Details DateTypeDepartmentCare Team (Latest Contact Info)Jqibdcvpvcd25/20/2025Orders Only [facility] [address] [place] [address] Sara Jesus CNM [address] [place], [place] [phone] DUB (dysfunctional uterine bleeding) (Primary Dx) Social History Tobacco UseTypesPacks/DayYears UsedDateSmoking Tobacco: NeverSmokeless Tobacco: NeverAlcohol UseStandard Drinks/WeekCommentsNever0 (1 standard drink = 0.6 oz pure alcohol)Caffeine: noneCommentsNoSex and Gender InformationValueDate RecordedSex Assigned at QpzktTwifei59/18/2024 5:20 PM EDTLegal SexFemale 12/01/2022 7:24 PM EDTGender CjsjcqnzPzucfl01/18/2024 5:20 PM EDTSexual OrientationNot on filedocumented as [...]
--- OUTSIDE RECORDS SUMMARY | 2025-07-22 06:19 | XMS_ITS | Clinical Summary ---
Author Organization [facility] tem Address [id number] [address] [place] [address] Care Team Providers Care University Controller Name Role Phone Bruna Ashton MD Primary Care Provider + Family History Medical HistoryRelationNameCommentsBreast cancerMaternal AuntRelationNameStatus CommentsMaternal Aunt Social History Tobacco UseTypesPacks/DayYears UsedDateSmoking Tobacco: Never AssessedChildcare AnswerDate QonazlvrAcvatfmfxEfkitdr94/12/2019EmploymentAnswerDate Recorded IusyvaompyTepvkzq70/12/2019Purpose - LifeAnswerDate RecordedPurpose and direction in iswcVuplyau66/11/2021CommentsUnknownSex and Gender InformationValueDate RecordedSex Assigned at BirthNot on fileLegal SexFemale 04/24/2015 11:58 AM EDTGender IdentityNot on fileSexual OrientationNot on file Plan of Treatment Not on file Medical Devices Not on file Insurance * Guarantor: EVELIN MONTENEGRO EAccount TypeRelation to PatientDate of BirthPhone Billing AddressPersonal/Plokkd69 [address] [place] [id number] Care Teams Team MemberRelationshipSpecialtyStart DateEnd Date Bruna Ashton MD PCP - GeneralPediatrics3
--- OUTSIDE RECORDS SUMMARY | 2025-07-22 06:19 | XMS_ITS | Encounter Summary ---
Author Organization [facility] Address [address] [place] [address] Care Team Providers Care Plant Safety Engineer Name Role Phone Unavailable Primary Care Provider Unavailabl e Encounter Details DateTypeDepartmentCare Team (Latest Contact Info)Nxhnhyhwoma21/20/2025Results Follow-Up [facility] [place] [facility] [address] [place] [address] Dior Hightower MA pelvis transvaginal, THINPREP IMAGING PAP AND HPV DNA REFLEX HPV 16,18 Social History Tobacco UseTypesPacks/DayYears UsedDateSmoking Tobacco: NeverSmokeless Tobacco: NeverAlcohol UseStandard Drinks/WeekCommentsNever0 (1 standard drink = 0.6 oz pure alcohol)Caffeine: noneCommentsNoSex and Gender InformationValueDate RecordedSex Assigned at FvpxsYwhebs99/18/2024 5:20 PM EDTLegal SexFemale 12/01/2022 7:24 PM EDTGender UegvpdreZrqtrh15/18/2024 5:20 PM EDTSexual OrientationNot on filedocumented as of this encounter Plan of Treatment Not on file documented as of this encounter Visit Diagnoses Not on filedocumented in this encounter
--- OUTSIDE RECORDS SUMMARY | 2025-07-22 06:20 | XMS_ITS | Clinical Summary ---
Author Organization [facility] Address [address] [place] [address] Care Team Providers Care Corn Cutter Operator Name Role Phone Unavailable Primary Care Provider Unavailabl e Allergies Active AllergyReactionsCriticalityNoted HjcaOoardrxvQceoalefyYssjBns42/03/2023 Medications MedicationSigDispense QuantityRefillsLast FilledStart DateEnd DateStatus megestrol (Megace) 20 MG tablet Indications:DUB (dysfunctional uterine bleeding)Take 1 tablet BID x3 days and then daily while bleeding 30 tablet 5Active Encounters DateTypeDepartmentCare BsxcWytysmbbegz67/29/2025Clinisync Result Encounter [facility] External Department Unsolicited Dada Baker DO 07/15/2025 3:00 PM EDTConsult [facility] [address] [place] [address] [place] [address] Dada Baker DO Pre-op examination; DUB (dysfunctional uterine bleeding); Thickened gqgnuxdddkq99/27/2025amboo flowsheet [facility] [address] [place] [address] [place] [address] Dada Baker DO 07/13/20258280Pqnilb54/20/2025Results Follow-Up [facility] [place] [address] Dior Hightower MA pelvis transvaginal, THINPREP IMAGING PAP AND HPV DNA REFLEX HPV 16,18 07/08/2025Orders Only [facility] [address] [place] [address] Sara Jesus CNM DUB (dysfunctional uterine bleeding) (Primary Dx)2025 1:30 PM EDTAncillary Procedure [facility] [address] [facility] [address] [place] [address] Endometrial thickening on iwrpblvqwr77/17/7568Xelppt38/16/2025 4:30 PM EDTOffice Visit [facility] [address] [place] [phone] Sara Jesus CNM Normal gynecologic examination; Screening for cervical cancer; DUB (dysfunctional uterine bleeding); Endometrial thickening on rpuxwqkjtt67/16/2025amb flowsheet [facility] [address] [place] [address] Sara Jesus CNM 07/03/20259850Akjryz67/26/2025Results Follow-Up [facility] [address] [place] [address] Dior Hightower MA CBC, TSH, Comprehensive metabolic panel, Additional followed-up results: 2 06/03/2025 5:00 PM EDTAncillary Procedure [facility] [address] [facility] [address] [place] [phone] DUB (dysfunctional uterine bleeding)06/03/20252682Vepmep07/12/2626Ptkwsz50/11/2025 1:30 PM EDTOffice Visit [facility] [address] [place] [address] Sara Jesus CNM DUB (dysfunctional uterine bleeding) (Primary Dx)05/30/2025amboo flowsheet [facility] [address] [place] [address] Sraa Jesus CNM 05/30/20250478Cerxep36/12/2025Results Follow-[facility] [address] [place] [address] Sara Jesus, NICHOLAS Bilateral screening mammogram with /08/2025 1:00 PM EDTAncillary Procedure [facility] [address] [facility] [address] [place] [phone] Breast cancer screening by cqygqsgoi62/08/2025Travelfrom Last 3 Months Family History RelationNameStatusCommentsDaughter 1AliveDaughter 2Alive Social History Tobacco UseTypesPacks/DayYears UsedDateSmoking Tobacco: NeverSmokeless Tobacco: Never Tobacco Cessation:Counseling Given: Not Answered Alcohol UseStandard Drinks/WeekCommentsNever0 (1 standard drink = 0.6 oz pure alcohol)Caffeine: noneCommentsNoSex and Gender InformationValueDate RecordedSex Assigned at JudiiKagrto71/18/2024 5:20 PM EDTLegal SexFemale 12/01/2022 7:24 PM EDTGender OtwargxrIpxafy19/18/2024 5:20 PM EDTSexual OrientationNot on file Last Filed Vital Signs Vital SignReadingTime TakenCommentsBlood Jrbvjnrz591/8207/15/2025 3:08 PM EDT Pulse--Temperature--Respiratory Rate--Oxygen Saturation--Inhaled Oxygen Concentration--Hgzfef593 kg (301 lb 12.8 oz)07/15/2025 3:08 PM LZDHrizxs783.9 cm (6')07/15/2025 3:08 PM EDTBody Mass Index40.9307/15/2025 3:08 PM EDT Plan of Treatment Not on file Procedures Procedure NamePriorityDate/TimeAssociated DiagnosisCommentsECG 12-LEAD07/17/2025 11:53 AM EDT US PELVIS EEHYUFDQQQKSCtdnfpn04/17/2025 1:57 PM EDT Endometrial thickening on ultrasound THINPREP IMAGING PAP AND HPV DNA REFLEX HPV 16,03Rvvdupi50/17/2025 8:47 AM EDT Screening for cervical cancer US PELVIC COMPLETE W/ SMFkreovb53/15/2025 5:42 PM EDT DUB (dysfunctional uterine bleeding) LIPID SUNWIBbxmvdm09/11/2025 2:08 PM EDT DUB (dysfunctional uterine bleeding) COMPREHENSIVE METABOLIC ISKISKkgoiwj56/11/2025 2:08 PM EDT DUB (dysfunctional uterine bleeding) PMQLusotau29/11/2025 2:08 PM EDT DUB (dysfunctional uterine bleeding) APCQkzhhlh35/11/2025 2:08 PM EDT DUB (dysfunctional uterine bleeding) BI MAMMOGRAM SCREENING TOMOSYNTHESIS SPTZFEWFJOadnnnl94/08/2025 1:11 PM EDT Breast cancer screening by mammogram from Last 3 Months Results * ECG 12-LEAD (07/17/2025 11:53 AM EDT)Anatomical RegionLateralityModalityOther Specimen (Source)Anatomical Location / LateralityCollection Method / Volume Collection TimeReceived Time07/17/2025 11:53 AM EDT Narrative 07/17/2025 6:40 PM EDT [facility] ?[address] ? [place] [address] ? Electrocardiograph Report ? Signed ? Patient: EVELIN TROTTER ? MR#: [id number] ?? : 1975 ?Acct:[id number] ?? Age/Sex: 50 / F ?ADM Date: 07/17/25 ?? Loc: PST ? Attending Dr: Dada Baker D.O. ? Ordering Physician: Dada Baker D.O. ?? Date of Service: 07/17/25 ?? Procedure(s): ECG 12 lead ?? Accession Number(s): [id number] ? cc: ?[facility] ? Test Date: ?2025-07-17 ?? Pat Name: ? EVELIN MONI ?Department: ? Room: ? - ?? Gender: ? Female ? Security Coordinator: ? : ?1975 ? Requested By: DADA BAKER ?? Order Number: [id number] ?Reading MD: ?? SHAWN BURGOS ? Measurements ?? Intervals ?[place] ? Rate: ? 75 ? P: ?19 ?? OR: ? 164 ?QRS: ?47 ?? QRSD: ? 88 ? T: ?43 ?? QT: ? 347 ? QTc: ?389 ? Interpretive Statements ?? SINUS RHYTHM ?? No previous ECG available for comparison ?? Electronically Signed On 07-17-2025 18:40:14 EDT by SHAWN BURGOS ? Dictated By: ?Shawn Burgos M.D. ? Signed By: ?10/29/25 1840 ? DD/ 1153 ? TD/TT: ? Platform Supervisor: Procedure Note Radiology, Radiologist, MD - 07/17/2025 [place] [address] Electrocardiograph Report Signed Patient: PRADEEP TROTTER#: [id number] : 1975Acct:[id number] Age/Sex: 50 / FADM Date: 07/17/25 Loc: PST Attending Dr: Dada Baker D.O. Ordering Physician: Dada Baker D.O. Date of Service: 07/17/25 Procedure(s): ECG 12 lead Accession Number(s): [id number] cc: [facility] Test Date: 2025-07-17 Pat Name: EVELIN TROTTER Department: Room: - Gender: Female Security Coordinator: : 1975 Requested By: DADA BAKER Order Number: [id number] Reading MD: SHAWN BURGOS Measurements Intervals [place] Rate: 75 P: 19 OR: 164 QRS: 47 QRSD: 88 T: 43 QT: 347 QTc: 389 Interpretive Statements SINUS RHYTHM No previous ECG available for comparison Electronically Signed On 07-17-2025 18:40:14 EDT by SHAWN BURGOS Dictated By: Shawn Burgos M.D. Signed By:07/17/25 1840 DD/ 1153 TD/TT: Platform Supervisor: Authorizing ProviderResult TypeResult StatusCoreeric Baker DOCLINISYNC IMAGINGFinal Result * US pelvis transvaginal (2025 1:57 PM [...] Aranda MD Authorizing ProviderResult TypeResult StatusValerijoe Jesus [facility] US PROCEDURES Final Result * THINPREP [...] evaluated with the ThinPrep(R) Imaging System. CYTOTECHNOLOGISTQUESTComment: AYUSH PAPPAS(ASCP) CT screening location: [employer] [place] [address]. CLIA: [id number] REVIEW CYTOTECHNOLOGISTQUESTComment: AYUSH ARAIZA(ASCP) CT Screening Location: [employer] [place] [address]. ??CLIA: [id number] (ALWAYS MESSAGE)QUESTComment: EXPLANATORY NOTE: The Pap is [...] / Volume Collection TimeReceived TimeSwabCervical swab / Vjkpvpx4307/05/2025 8:47 AM EDT 07/06/2025 2:50 AM EDT Narrative Resulting Agency Comment Performing Organization Information ?Site ID: AMD ?Name: [employer]/[facility] ?Address: [address] [place] [address] [place], [place] ?Director: Angel Villegas M.D.,PhD ?Site ID: [id number] ?Name: [employer] [facility] ?Address: [address] [place] [phone] ?Director: Arcenio Nova MD Authorizing ProviderResult TypeResult StatusValeshivam Jesus [facility] CYTOLOGY ORDERABLESFinal ResultPerforming OrganizationAddressCity/State/ZIP CodePhone Number QUEST * US Pelvis w/ [...] Aranda MD Authorizing ProviderResult TypeResult StatusValeshivam Jesus [facility] US PROCEDURES Final Result * (ABNORMAL) CBC (05/30/2025 2:08 PM EDT)ComponentValueRef RangeTest Method Analysis TimePerformed AtPathologist SignatureWHITE BLOOD CELL COUNT7.03.8 - 10.8 Thousand/uLQUESTRED BLOOD CELL COUNT4.373.80 - 5.10 Million/uLQUEST NFAOHSHWXT42.9(L)11.7 - 15.5 g/wRNRLMLAXGULVZRJJ15.835.0 - 45.0 %YKXJQCYR10.2 80.0 - 100.0 cOXLGFYSAE22.9(L)27.0 - 33.0 wxSSDBCYODG53.6(L)32.0 - 36.0 g/dL QUESTComment: For adults, a slight decrease in the calculated MCHC value (in the range of 30 to 32 g/dL) is most likely not clinically significant; however, it should be interpreted with caution in correlation with other red cell parameters and the patient's clinical condition. RDW14.211.0 - 15.0 %QUESTPLATELET ZPPOR533(H)140 - 400 Thousand/xZSRFLSIWL31.4 7.5 - 12.5 fLQUESTSpecimen (Source)Anatomical Location / LateralityCollection Method / VolumeCollection TimeReceived TimeBloodVenous blood specimen / Unknown 05/30/2025 2:08 PM EDT05/30/2025 2:09 PM EDT Narrative Resulting Agency Comment Performing Organization Information ?Site ID: [id number] ?Name: [employer] [facility] ?Address: [address] [place] [address], [address] [place] [phone] ?Director: Arcenio Nova MD Authorizing ProviderResult TypeResult StatusValeshivam Jesus CNML BLOOD ORDERABLESFinal ResultPerforming OrganizationAddressCity/[facility] CodePhone Number QUEST * TSH (05/30/2025 2:08 PM EDT)ComponentValueRef RangeTest MethodAnalysis Time Performed AtPathologist SignatureTSH1.36mIU/LQUESTComment: ?Reference Range ? > or = 20 Years 0.40-4.50 ? Ranges ?First trimester ?0.26-2.66 ?Second trimester ?? 0.55-2.73 ?Third trimester ?0.43-2.91 Specimen (Source)Anatomical Location / LateralityCollection Method / Volume Collection TimeReceived TimeBloodVenous blood specimen / Ktduaub4905/30/2025 2:08 PM EDT05/30/2025 2:09 PM EDT Narrative Resulting Agency Comment Performing Organization Information ?Site ID: [id number] ?Name: [employer] [facility] ?Address: [address] [place] [address], [address] [place] [address] ?Director: Arcenio Nova MD Authorizing ProviderResult TypeResult StatusValerijoe Jesus CNMLAB BLOOD ORDERABLESFinal ResultPerforming OrganizationAddressCity/State/ZIP CodePhone Number QUEST * Lipid panel (05/30/2025 2:08 PM EDT)ComponentValueRef RangeTest MethodAnalysis TimePerformed AtPathologist SignatureCHOLESTEROL, EQSGC904<200 mg/dLQUESTHDL WZTXMQNRWDL99> OR = 50 mg/kCWTHNNYWXUQTLUWCJCM87<150 mg/dLQUESTLDL CHOLESTEROL 98mg/dL (calc)QUESTComment: Reference range: <100 Desirable range <100 mg/dL for primary prevention; <70 mg/dL for patients with CHD or diabetic patients with > or = 2 CHD risk factors. LDL-C is now calculated using the Aaron-Carola calculation, which is a validated novel method providing better accuracy than the Friedewald equation in the estimation of LDL-C. Aaron SS et al. STACY. 2013;310(19): 2414-6544 (http://education.[employer].Neitui/faq/AWG256) CHOL/HDLC RATIO3.1<5.0 (calc)QUESTNON HDL NQDSAABDHKV254<130 mg/dL (calc)QUEST Comment: For patients with diabetes plus 1 major ASCVD risk factor, treating to a non-HDL-C goal of <100 mg/dL (LDL-C of <70 mg/dL) is considered a therapeutic option. Specimen (Source)Anatomical Location / LateralityCollection Method / Volume Collection TimeReceived TimeBloodVenous blood specimen / Lnpyutq5905/30/2025 2:08 PM EDT05/30/2025 2:09 PM EDT Narrative Resulting Agency Comment Performing Organization Information ?Site ID: [id number] ?Name: [employer] [facility] ?Address: [address] [place] [address], [address] [place] [address] ?Director: Arcenio Nova MD Authorizing ProviderResult TypeResult StatusValeshivam Jesus CNMLAB BLOOD ORDERABLESFinal ResultPerforming OrganizationAddressCity/State/ZIP CodePhone Number QUEST * (ABNORMAL) Comprehensive metabolic panel (05/30/2025 2:08 PM EDT)Component ValueRef RangeTest MethodAnalysis TimePerformed AtPathologist SignatureGlucose 125(H)65 - 99 mg/dLQUESTComment: ? Fasting reference interval For someone without known diabetes, a glucose value between 100 and 125 mg/dL is consistent with prediabetes and should be confirmed with a follow-up test. FSR396 - 25 mg/dLQUESTCreatinine0.940.50 - 0.99 mg/dZOMITVWVUE59> OR = 60 mL/min/1.44u1OHNFEDSH/CREATININE RATIOSEE NOTE: (calc)QUESTComment: ?? Not Reported: BUN and Creatinine are within ?? reference range. ? Gneafa194735 - 146 mmol/LQUESTPotassium, Bld4.13.5 - 5.3 mmol/PRFJFBOorpjfes715 98 - 110 mmol/LQUESTCarbon Knidbdu2481 - 32 mmol/LQUESTCalcium9.08.6 - 10.2 mg/dLQUESTPROTEIN, TOTAL7.36.1 - 8.1 g/dLQUESTALBUMIN4.33.6 - 5.1 g/dLQUEST GLOBULIN3.01.9 - 3.7 g/dL (calc)QUESTALBUMIN/GLOBULIN RATIO1.41.0 - 2.5 (calc) QUESTBILIRUBIN, TOTAL0.40.2 - 1.2 mg/dLQUESTALKALINE WREXBTFOFME4762 - 125 U/L YQHDULRC5149 - 35 U/IOWAZGNCY26 - 29 U/LQUESTSpecimen (Source)Anatomical Location / LateralityCollection Method / VolumeCollection TimeReceived TimeBlood Venous blood specimen / Aymquvs4005/30/2025 2:08 PM EDT05/30/2025 2:09 PM EDT Narrative Resulting Agency Comment Performing Organization Information ?Site ID: QPT ?Name: [employer] [facility] ?Address: [address] [place] [address], [address] [place] [address] ?Director: Arcenio Nova MD Authorizing ProviderResult TypeResult StatusValeshivam Jesus CNMLAB BLOOD ORDERABLESFinal ResultPerforming OrganizationAddressCity/State/ZIP CodePhone [...]
--- OUTSIDE RECORDS SUMMARY | 2025-07-22 06:20 | XMS_ITS | Encounter Summary ---
Author Organization [facility] Address [address] [place] [address] Care Team Providers Care Counter Hand Name Role Phone Unavailable Primary Care Provider Unavailabl e Encounter Details DateTypeDepartmentCare Team (Latest Contact Info)Yburvzjqnmm20/29/2025linisync Result Encounter [facility] External Department Unsolicited Dada Baker, DO [address] [facility] [address] [place], [place] [id number] Social History Tobacco UseTypesPacks/DayYears UsedDateSmoking Tobacco: NeverSmokeless Tobacco: NeverAlcohol UseStandard Drinks/WeekCommentsNever0 (1 standard drink = 0.6 oz pure alcohol)Caffeine: noneCommentsNoSex and Gender InformationValueDate RecordedSex Assigned at OacwjCipoyk51/18/2024 5:20 PM EDTLegal SexFemale 12/01/2022 7:24 PM EDTGender OusphoupJihpmk93/18/2024 5:20 PM EDTSexual OrientationNot on filedocumented as of this encounter Plan of Treatment Not on file documented as of this encounter Procedures Procedure NamePriorityDate/TimeAssociated DiagnosisCommentsECG 12-LEAD07/17/2025 11:53 AM EDT documented in this encounter Results * ECG 12-LEAD (07/17/2025 11:53 AM EDT)Anatomical RegionLateralityModalityOther Specimen (Source)Anatomical Location / LateralityCollection Method / Volume Collection TimeReceived Time10/ 11:53 AM EDT Narrative 07/17/2025 6:40 PM EDT [facility] ?[address] ? [place] [address] ? Electrocardiograph Report ? Signed ? Patient: REAU,EVELIN ? MR#: [id number] ?? : 1975 ?Acct:[id number] ?? Age/Sex: 50 / F ?ADM Date: 10/29/25 ?? Loc: PST ? Attending Dr: Dada Baker D.O. ? Ordering Physician: Dada Baker D.O. ?? Date of Service: 07/17/25 ?? Procedure(s): ECG 12 lead ?? Accession Number(s): [id number] ? cc: ?[facility] ? Test Date: ?2025-07-17 ?? Pat Name: ? EVELIN TROTTER ?Department: ? Room: ? - ?? Gender: ? Female ? Camp Guard: ? : ?1975 ? Requested By: DADA BAKER ?? Order Number: [id number] ?Reading MD: ?? SHAWN BURGOS ? Measurements ?? Intervals ?[place] ? Rate: ? 75 ? P: ?19 ?? CT: ? 164 ?QRS: ?47 ?? QRSD: ? 88 ? T: ?43 ?? QT: ? 347 ? QTc: ?389 ? Interpretive Statements ?? SINUS RHYTHM ?? No previous ECG available for comparison ?? Electronically Signed On 07-17-2025 18:40:14 EDT by SHAWN BURGOS ? Dictated By: ?Shawn Burgos M.D. ? Signed By: ?10/29/25 1840 ? DD/ 1153 ? TD/TT: ? Mold Design Engineer: Procedure Note Radiology, Radiologist, - 07/17/2025 [place] [address] Electrocardiograph Report Signed Patient: PRADEEP TROTTER#: [id number] : 1975Acct:[id number] Age/Sex: 50 / FADM Date: 07/17/25 Loc: [facility] Attending Dr: Dada Baker D.O. Ordering Physician: Dada Baker D.O. Date of Service: 07/17/25 Procedure(s): ECG 12 lead Accession Number(s): [id number] cc: [facility] Test Date: 2025-07-17 Pat Name: EVELIN TROTTER Department: Room: - Gender: Female Camp Guard: : 1975 Requested By: DADA BAKER Order Number: [id number] Reading MD: SHAWN BURGOS Measurements Intervals [place] Rate: 75 P: 19 CT: 164 QRS: 47 QRSD: 88 T: 43 QT: 347 QTc: 389 Interpretive Statements SINUS RHYTHM No previous ECG available for comparison Electronically Signed On 07-17-2025 18:40:14 EDT by SHAWN BURGOS Dictated By: Shawn Burgos M.D. Signed By:07/17/25 1840 DD/ 1153 TD/TT: Mold Design Engineer: Authorizing ProviderResult TypeResult StatusCorey Samuel DOCLINISYNC IMAGINGFinal Result documented in this encounter Visit Diagnoses Not on filedocumented in this encounter
[2025-07-22 06:30] VITALS: BP 154/79; PULSE 89; TEMP 36.1; O2SAT 98; BMI 40.8
[2025-07-22 06:30] LABS: Hematocrit 37.4 % (36.0-48.0); Hemoglobin 11.3 g/dL (12.0-16.0); Immature Granulocytes Abs Auto 0.02 10^3/uL (0.00-0.03); Immature Granulocytes Pct Auto 0.3 % (0.0-0.5); Lymphocytes Absolute Auto 2.0 10^3/uL (1.2-3.8); Mean Corpuscular HGB Conc 30.2 g/dL (29.9-35.2); Mean Corpuscular Hemoglobin 25.3 pg (26.7-34.0); Mean Corpuscular Volume 83.9 fL (81.0-99.0); Platelet Count 408 10^3/uL (150-450); Red Blood Count 4.46 10^6/uL (4.20-5.40); White Blood Count 6.4 10^3/uL (4.0-11.0)
--- NOTE | 2025-07-22 08:16 | PM.ONB ---
Brief Operative Note Date of procedure: 07/22/25 Pre-op diagnosis general: menorrhagia, significantly thickend endometrium Post-op diagnosis: same as pre-op Procedure: NAME OF PROCEDURE: [ D&c hysteroscopy with myosure] finding: uterine polyp, extensive fluffy and thickend endometrium PROCEDURE: The patient was taken back to the Operating Room where she was prepped and draped in normal sterile fashion after being placed under general anesthesia without difficulty. She was also placed in the dorsal lithotomy position. A weighted speculum was placed in the patient?s vagina. The anterior lip of the cervix was identified and grasped with a single tooth tenaculum. The patient?s uterus was then sounded roughly to [? 8] cm. The patient was then gently dilated using Hegar dilators. The hysteroscope was passed through the patient?s cervix into the uterus. Both ostia were identified. fluffy appearing endometrium. No gross evidence of malignancy, no gross evidence of polyps or fibroids. The myosure apparatus was placed through the scope, The myosure was engaged and endometrial curretting were removed along with endometrial polyp, The hysteroscope was then removed from the uterus. The endometrial curettings were sent out to pathology. The single tooth tenaculum was then removed from the patient's anterior lip of the cervix where excellent hemostasis was noted. All instruments were removed from the patient?s vagina. The patient tolerated the procedure well. Sponge, lap and needle counts were correct times two. The patient was taken to the Recovery Room in stable condition.Room in stable condition. Anesthesia: AMINATAA Surgeon: Rivera Baker Estimated blood loss (mL): 5 Pathology: other (endometrial currettings) Condition: stable Disposition: PACU Urinary Catheter Management Urinary Catheter Management Urethral: Cath placed during this visit: no
[2025-07-22 08:21] VITALS: BP 124/77; PULSE 86; TEMP 36.3; O2SAT 96
[2025-07-22 08:36] VITALS: BP 125/63; PULSE 71; O2SAT 99
[2025-07-22 08:51] VITALS: BP 122/66; PULSE 71; O2SAT 100
[2025-07-22 09:06] VITALS: BP 132/76; PULSE 65; O2SAT 100
[2025-07-22 09:36] VITALS: BP 137/75; PULSE 60; O2SAT 100
== END 2025-07-22 09:36 | disposition home or self-care (01) ==
PROVIDERS: Visit Provider Obstetrics & Gynecology
PROC: (CPT 952; principal; 2025-07-22 07:30)
DX: N93.8 Other specified abnormal uterine and vaginal bleeding (principal); R93.89 Abnormal findings on diagnostic imaging of other specified body structures; N84.0 Polyp of corpus uteri
CPT/HCPCS: 58558; 36415; 84702; 85025; J2405; J2704; J3010